=== PATIENT | female | born 1980 | race Hispanic/Latino ===

== ENCOUNTER 2017-10-12 22:59 | Emergency (ER) | payer BC ==
[2017-10-12 23:09] VITALS: BP 115/77; PULSE 89; RESP 16; TEMP 98.2; O2SAT 98
[2017-10-13] LABS: EOS # 0.2 K/uL (0.0-0.7); EOS % 5.2 % (0.0-4.0); HEMOGLOBIN 11.3 g/dL (12.0-16.0); LYMPH # 1.8 K/uL (1.0-4.3); LYMPH % 38.8 % (20.0-40.0); MEAN CELL VOLUME 86.1 fl (81.0-99.0); MEAN CORPUSCULAR HGB CONC 33.6 g/dL (33.0-37.0); MEAN PLATELET VOLUME 8.4 fl (7.2-11.7); MONO # 0.6 K/uL (0.0-0.8); MONO % 11.9 % (0.0-10.0); NEUT % 43.1 % (50.0-75.0); NRBC % 0.1 % (0.0-0.0); RBC 3.9 Mil/uL (3.80-5.20); RED CELL DISTRIBUTION WIDTH 14.6 % (11.5-14.5); WHITE BLOOD COUNT 4.7 K/uL (4.8-10.8)
[2017-10-13 00:07] LABS: ALB/GLOB RATIO 1.3 (1.0-2.1); ALBUMIN 4.2 g/dL (3.5-5.0); ALT/SGPT 32 U/L (9-52); AST/SGOT 23 U/L (14-36); BLOOD UREA NITROGEN 15 mg/dl (7-17); CALCIUM 8.6 mg/dL (8.4-10.2); GFR AFRICAN-AMERICAN > 60; GFR NON-AFRICAN AMERICAN > 60
--- NOTE | 2017-10-13 00:08 | ED PDOC ---
HPI: Back Time Seen by Provider: 10/12/17 23:13 Chief Complaint (Nursing): Back Pain Chief Complaint (Provider): Bilateral Flank Pain History Per: Patient History/Exam Limitations: no limitations Onset/Duration Of Symptoms: Days (1 day ago), Sudden Onset Current Symptoms Are (Timing): Still Present Additional Complaint(s): 37 y/o female presents to the ED complaining of sudden bilateral flank pain, onset of 1 day ago. Patient states that the pain began yesterday while undergoing an eye examination, and is convinced that she might be having a reaction to the Fluorescein drops placed in her eyes due to her history of dye allergies. She denies rash, itching, or throat closing, but reports of having a history of "kidney pain" with previous dye allergy, and nausea without vomiting or abdominal pain. Of note, she has not taken anything for her pain. Past Medical History Reviewed: Historical Data, Nursing Documentation, Vital Signs Vital Signs: Last Vital Signs Temp 98.2 F 10/12/17 23:06 Pulse 89 10/12/17 23:06 Resp 16 10/12/17 23:06 BP 115/77 10/12/17 23:06 Pulse Ox 98 10/12/17 23:06 - Medical History PMH: No Chronic Diseases - Surgical History Surgical History: No Surg Hx - Family History Family History: States: Unknown Family Hx - Social History Current smoker - smoking cessation education provided: No Ex-Smoker (has not smoked in the last 12 months): No Alcohol: None Drugs: Denies - Home Medications Home Medications: Ambulatory Orders Medication Instructions Recorded DiphenhydrAMINE [Benadryl] 2 tab PO Q4 PRN #24 cap 07/02/15 Famotidine [Pepcid] 20 mg PO BID #10 tab 07/02/15 Prednisone 60 mg PO DAILY #15 tab 07/02/15 - Allergies Allergies/Adverse Reactions: Allergies Allergy/AdvReac Type Severity Reaction Status Date / Time ciprofloxacin Allergy ANGIOEDEMA Verified 10/12/17 23:04 clindamycin Allergy ANGIOEDEMA Verified 10/12/17 23:04 fluorescein Allergy RASH Verified 10/12/17 23:05 Iodinated Contrast- Oral and Allergy ANAPHYLAXIS Verified 10/12/17 23:05 IV Dye levofloxacin [From Levaquin] Allergy ANAPHYLAXIS Verified 10/12/17 23:05 metronidazole [From Flagyl] Allergy ANGIOEDEMA Verified 10/12/17 23:04 Review of Systems ROS Statement: Except As Marked, All Systems Reviewed And Found Negative Constitutional: Positive for: Other (kidney pain) ENT: Negative for: Throat Swelling Gastrointestinal: Positive for: Nausea. Negative for: Vomiting, Abdominal Pain Skin: Negative for: Rash Physical Exam - Reviewed Nursing Documentation Reviewed: Yes Vital Signs Reviewed: Yes - Physical Exam Appears: Positive for: Non-toxic, In Acute Distress (mild painful) Head Exam: Positive for: ATRAUMATIC Skin: Positive for: Warm, Dry Eye Exam: Positive for: EOMI, PERRL ENT: Positive for: Pharynx Is (clear). Negative for: Pharyngeal Erythema, Tonsillar Exudate Neck: Positive for: Painless ROM, Supple Cardiovascular/Chest: Positive for: Regular Rate, Rhythm, Chest Non Tender. Negative for: Murmur Respiratory: Positive for: Normal Breath Sounds. Negative for: Rales, Rhonchi, Wheezing, Respiratory Distress Gastrointestinal/Abdominal: Positive for: Soft. Negative for: Tenderness, Mass , Distended, Guarding Back: Positive for: L CVA Tenderness, R CVA Tenderness. Negative for: Decreased ROM Extremity: Positive for: Normal ROM. Negative for: Deformity Lymphatic: Negative for: Adenopathy Neurologic/Psych: Positive for: Alert. Negative for: Motor/Sensory Deficits - Laboratory Results Result Diagrams: 10/12/17 23:57 10/12/17 23:57 - ECG O2 Sat by Pulse Oximetry: 98 (RA) Pulse Ox Interpretation: Normal Medical Decision Making Medical Decision Making: Time: --23:39 Impression: --Flank pain Differential: --pyelonephritis vs. renal colic vs. muscle spasm vs. atypical allergic reaction Plan: --ED Urine Dip --ED Urine --IV Insertion --Renal Ultrasound Reassess: --00:00 Patient to be signed out to Dr. Dillard pending labs and ultrasound. Scribe Attestation: Documented by Tre Blanco acting as a scribe for Nanci Serrano MD Disposition - Clinical Impression Clinical Impression: Flank pain, Back pain - Patient ED Disposition Is Patient to be Admitted: Transfer of Care Discussed With : Shital Dillard Doctor Will See Patient In The: ED - Disposition Disposition: Transfer of Care Disposition Time: 00:00 Condition: STABLE Patient Signed Over To: Shital Dillard
--- NOTE | 2017-10-13 00:16 | ED PDOC ---
- Laboratory Results Result Diagrams: 10/12/17 23:57 10/12/17 23:57 - ECG O2 Sat by Pulse Oximetry: 98 (RA) Medical Decision Making Medical Decision Making: Time: --00:00 Reassess --Patient signed over to the provider by Dr. Serrano pending labs and Ultrasound. --00:26 EXAM:US Retroperitoneal Complete, Renal FINDINGS: Right kidney: Unremarkable. No stones. No solid mass. No hydronephrosis. Left kidney: Unremarkable. No stones. No solid mass. No hydronephrosis. Bladder: Unremarkable as visualized. Left ureteral jet not visualized. Right ureteral jet detected IMPRESSION: No sonographic evidence for hydronephrosis Left ureteral jet not visualized Thank you for allowing us to participate in the care of your patient --00:35 Labs reviewed and revealed no clinically significant abnormalities Ultrasound reviewed and revealed no clinically significant abnormalities --02:00 Patient reports improvement of symptoms and is feeling better. Patient will like to postpone CT Scan of the abdomen at this time, and would like to go home and try Tylenol instead. Patient instructed to return to the ED if symptoms worsen. Scribe Attestation: Documented by Tre Blanco acting as a scribe for Shital Dillard MD Disposition Doctor Will See Patient In The: Office Counseled Patient/Family Regarding: Studies Performed, Diagnosis, Need For Followup - Clinical Impression Clinical Impression: Flank pain, Back pain - POA Present On Arrival: None - Disposition Referrals: [facility] [Outside] Disposition: Routine/Home Disposition Time: 02:00 Condition: GOOD Additional Instructions: Take tylenol for pain. Return for worsening. Follow up with your PCP in 2-3 days. Instructions: Back Pain (ED)
--- NOTE | 2017-10-13 13:57 | US ---
PROCEDURE: Ultrasound of the Kidneys HISTORY: flank pain r/o hydronephrosis COMPARISON: None available. TECHNIQUE: Sonogram of the kidneys. FINDINGS: RIGHT KIDNEY: Measures: 3.1 x 3.7 x 11.7 cm. Normal in size, contour and echogenicity. No stone, solid mass lesion or hydronephrosis visualized. LEFT KIDNEY: Measures: 3.5 x 4.1 x 10.9 cm. Normal in size, contour and echogenicity. No stone, solid mass lesion or hydronephrosis visualized. OTHER FINDINGS: None. IMPRESSION: Unremarkable renal sonogram.
== END 2017-10-13 02:18 | disposition home or self-care (01) ==
LOC: H.ER 22:59
DX: R10.9 Unspecified abdominal pain (principal); M54.9 Dorsalgia, unspecified